=== PATIENT | female | born 1960 | race Caucasian/White ===

== ENCOUNTER 2021-01-31 17:32 | Emergency (ER) | payer BC ==
[2021-01-31 17:53] LABS: Glucose,Whole Blood 328 mg/dL (75-99)
[2021-01-31] MEDS ORDERED: SODIUM CHLORIDE 0.9% 1,000 ML IV STA (18:36)
[2021-01-31] MEDS ORDERED: FAMOTIDINE 20 MG/2 ML VIAL IV STA (18:37)
[2021-01-31] MEDS ORDERED: diphenhydrAMINE 50 MG/ML 1 ML VIAL IVP STA (18:37)
[2021-01-31] MEDS ORDERED: ONDANSETRON 4 MG/2 ML VIAL IVP STA (18:37)
[2021-01-31 18:56] LABS: Basophils # (A) 0.1 k/uL (0-0.2); Basophils % (A) 0 %; Eosinophils # (A) 0.1 k/uL (0-0.7); Eosinophils % (A) 0 %; HCT 40.9 % (34.0-46.0); HGB 13.2 gm/dL (11.4-16.0); Lymphocytes # (A) 1.8 k/uL (1.0-4.8); Lymphocytes % (A) 8 %; MCH 27.8 pg (25.0-35.0); MCHC 32.2 g/dL (31.0-37.0); MCV 86.5 fL (80.0-100.0); Mean Platelet Volume 8.5; Monocytes # (A) 1.1 k/uL (0-1.0); Monocytes % (A) 5 %; Neutrophils # (A) 19.6 k/uL (1.3-7.7); Neutrophils % (A) 85 %; Platelet Count 329 k/uL (150-450); RBC 4.73 m/uL (3.80-5.40); RDW 14.8 % (11.5-15.5); WBC 22.9 k/uL (3.8-10.6)
[2021-01-31 19:00] LABS: ALT 16 U/L (4-34); AST 38 U/L (14-36); African American GFR (CKD) 31 (>60 ml/min/1.73 sqM); Albumin 3.9 g/dL (3.5-5.0); Alkaline Phosphatase 109 U/L (38-126); Anion Gap 16 mmol/L; Blood Urea Nitrogen 51 mg/dL (7-17); Calcium 8.6 mg/dL (8.4-10.2); Carbon Dioxide 18 mmol/L (22-30); Chloride 92 mmol/L (98-107); Glucose 310 mg/dL (74-99); Lipase 354 U/L (23-300); Magnesium 1.5 mg/dL (1.6-2.3); Non-African American GFR(CKD) 27 (>60 ml/min/1.73 sqM); Sodium 126 mmol/L (137-145); Total Bilirubin 1.2 mg/dL (0.2-1.3)
[2021-01-31 19:31] LABS: Partial Thromboplastin Time 23.5 sec (22.0-30.0); Prothrombin Time 10.4 sec (9.0-12.0)
[2021-01-31 19:35] LABS: D-Dimer 9.21 mg/L FEU (<0.60)
[2021-01-31] MEDS ORDERED: MAGNESIUM SULFATE-D5W PMX 1 GM in DEXTROSE/WATER 1 100ML.BAG IVPB ONE (19:40)
[2021-01-31] MEDS ORDERED: SODIUM CHLORIDE 0.9% 1,000 ML IV ONE (19:43)
--- NOTE | 2021-01-31 20:45 | XR ---
EXAMINATION TYPE: XR chest 1V portable, CT chest angio for PE DATE OF EXAM: 01/31/2021 COMPARISON: NONE HISTORY: Chest pain, positive d-dimer. Clinical concern for pulmonary embolism. Chest radiograph technique: Single AP upright portable chest radiograph. CT thorax technique: CT scan of the chest performed for pulmonary embolism after intravenous injectio n of 65 mL of Isovue 300. CT DLP: 475.9 mGycm Automated exposure control for dose reduction was used. FINDINGS: Chest radiograph: Linear opacities are demonstrated in the left lower lobe. Trace left pleural effusion. Cardiomediasti nal silhouette within normal limit. No evidence of pneumothorax. CT thorax for pulmonary embolism: Pulmonary trunk opacification is adequate for evaluation. Opacification of subsegmental pulmonary art eries is suboptimal due to bolus timing. No filling defects are seen in the main, left, right lower lobar pulmonary arteries. Suboptimal evalu ation of the segmental and subsegmental pulmonary arteries therefore a small nonocclusive pulmonary e mbolism cannot be entirely excluded. Pulmonary trunk trunk diameter approximately 2.7 cm. Intrathoracic aorta is nonaneurysmal. Linear with slight minimal nodular and patchy opacities are seen in the left upper and lower lobes. T race left pleural effusion is noted. No pulmonary mass identified. No definite significant pulmonary nodule. Patent trachea and bronchial tree. No mediastinal or hilar lymphadenopathy. The included body and tail of the pancreas is heterogeneous and abnormal enhancement and there is mila rounding fat stranding and peripancreatic fluid in the left upper quadrant and left side of the splen ic/paracolic gutter. The fluid in the left upper quadrant is also closely associated with the greater curvature of the sto mach and there is mild thickening to the gastric wall. IMPRESSION: 1. NO EVIDENCE OF A MAJOR PULMONARY ARTERIAL EMBOLISM WITH LIMITATION IN EVALUATION IN THE SEGMENTAL AND SUBSEGMENTAL PULMONARY ARTERIES. 2. TRACE LEFT PLEURAL EFFUSION PATCHY AND SLIGHTLY NODULAR WITH LINEAR OPACITIES IN THE LEFT UPPER AN D LOWER LOBE COULD BE ON THE BASIS OF ATELECTASIS AND LIKELY REACTIVE, CORRELATION FOR PNEUMONIA GERMAN MMENDED ON CLINICAL BASIS. 3. HETEROGENEOUS APPEARANCE TO THE PANCREATIC BODY AND TAIL WITH SURROUNDING STRANDING AND FLUID SUSP ICIOUS FOR ACUTE NECROTIZING PANCREATITIS, PANCREATIC NEOPLASM CANNOT BE ENTIRELY EXCLUDED. 4. FLUID IN THE LEFT UPPER QUADRANT CLOSELY ASSOCIATED WITH THE GREATER CURVATURE OF THE STOMACH, THI S FLUID MAY BE REACTIVE SECONDARY TO PANCREATITIS HOWEVER IT IS DIFFICULT TO EXCLUDE A GASTRIC WALL P ATHOLOGY. 5. CHEST RADIOGRAPH REFLECTS FINDINGS DESCRIBED ABOVE. DR. BRASHER CALLED DR. BRENDON CUBA WITH ABOVE FINDINGS AND IMPRESSION. COMMUNICATION ACKNOWLEDGED BY PROVIDER.
[2021-01-31] MEDS ORDERED: MEROPENEM 2 GM in SODIUM CHLORIDE 0.9% 100 ML IVPB STA (21:03)
--- NOTE | 2021-01-31 21:35 | ED ---
General Adult HPI - General Chief complaint: Recheck/Abnormal Lab/Rx Stated complaint: hyperglycemia Time Seen by Provider: 01/31/21 17:54 Source: patient Mode of arrival: ambulatory Limitations: no limitations - History of Present Illness Initial comments: Patient is a 61-year-old female with past medical history remarkable for hypertension, wie-oxqmtsx-mixnnykly diabetes, obesity presents emergency Department complaining of a 4-5 day history of worsening epigastric abdominal pain, nausea, vomiting. She denies any diarrhea or change in bowel habits. States she has been having minimal by mouth intake over the last few days secondary to her nausea and vomiting. She describes her vomiting is nonbilious and nonbloody. She denies any chest pain but does endorse difficulty in breathing. She endorses exertional dyspnea but denies any worsening orthopnea, paroxysmal nocturnal dyspnea, or sooner extremity swelling. Patient does have a history of superficial blood clots in her bilateral lower extremities and no DVTs or pulmonary embolism. She has never been on blood thinners previously. She denies any fevers, cough, headache, blurry vision. She states she feels dehydrated and has generalized fatigue. She is concerned abdominal pain as sharp located in the epigastric region. It does not radiate. She denies any palliative or exacerbating factors. She denies any history of cardiac disease. Patient otherwise has no acute complaints at this time. She denies any polyuria or dysuria. She denies being . - Related Data Home Medications Medication Instructions Recorded Confirmed metFORMIN HCL [Glucophage] 1,000 mg PO DAILY 10/22/17 01/31/21 lisinopriL [Zestril] 20 mg PO DAILY 01/31/21 01/31/21 Allergies Allergy/AdvReac Type Severity Reaction Status Date / Time No Known Allergies Allergy Verified 01/31/21 18:21 Review of Systems ROS Statement: Those systems with pertinent positive or pertinent negative responses have been documented in the HPI. Review of Systems: CONST: Denies fever EYES: Denies blurry vision ENT: Denies nasal congestion C/V: Denies Chest pain RESP: Endorses shortness of breath GI: Endorses abdominal pain : Denies dysuria SKIN: Denies rash. MSK: Denies joint pain. NEURO: Denies headache ROS Other: All systems not noted in ROS Statement are negative. Past Medical History Past Medical History: Diabetes Mellitus, Hypertension History of Any Multi-Drug Resistant Organisms: None Reported Past Surgical History: Cholecystectomy Additional Past Surgical History / Comment(s): Left forearm, laproscopic rreproductive organs Past Anesthesia/Blood Transfusion Reactions: No Reported Reaction Past Psychological History: No Psychological Hx Reported Smoking Status: Current every day smoker Past Alcohol Use History: None Reported Past Drug Use History: None Reported General Exam - General Exam Comments Initial Comments: General: Appears in mild distress secondary to abdominal discomfort. HEAD: Normal with no signs of head trauma. EYES: PERRLA, EOMI, conjunctiva normal, no discharge. ENT: Hearing is grossly intact, dry mucous membranes. RESPIRATORY: Clear breath sounds bilaterally. No wheezes, rales, or rhonchi. C/V: Patient is tachycardic with a regular rhythm. S1 and S2 auscultated. Peripheral pulses are 2+ and intact throughout. Nonpitting edema in the bilateral lower extremities. ABD: Abdomen is soft, nondistended. Patient is tender to palpation in the epigastric region with no radiation. There is no guarding. There are no peritoneal signs. Linton sign is negative. McBurney's point is negative. EXT: Normal range of motion, no obvious deformity SKIN: No rashes or lesions observed on exposed skin. NEURO: Alert and Oriented 4. No focal sensory or strength deficits. Limitations: no limitations Course Vital Signs 01/31/21 01/31/21 01/31/21 17:38 19:00 20:28 Temperature 97.8 F Pulse Rate 122 H 107 H 101 H Respiratory 18 18 18 Rate Blood Pressure 101/67 109/61 143/68 O2 Sat by Pulse 98 99 95 Oximetry Medical Decision Making - Medical Decision Making Based the patient's presentation and physical exam, I'm concerned for possible cardiac etiology for her current symptoms versus possible pulmonary embolism as well as intra-abdominal process. Her abdominal laboratory studies will be obtained. We will also evaluate from a joints and possible DKA with a history of diabetes and hyperglycemia. Patient does not perk out in Wells score is moderate at 4.5 with subjective dyspnea associated with tachycardia and history of superficial blood clots. Therefore cardiac labs as well as a d-dimer which will be obtained. Urinalysis was obtained. She was in agreement with this plan. She'll be given a 1 L fluid bolus as well as IV Zofran, famotidine, Benadryl symptomatically. She was in agreement with this plan. Patient's laboratory studies are remarkable for a hyponatremia of 126 and hypochloremia of 92. Patient's bicarb is decreased to 18 which is likely secondary to her episodes nonbilious emesis. Patient has an AK I with an elevated BUN/creatinine 51 and 1.97, likely prerenal. Patient is mildly hyperglycemic at 310. Patient is hypomagnesemic and 1.5 which was replenished. Patient's troponin is negative. Patient's lipase is elevated 354. D-dimer is also elevated to 9.21. Patient has a leukocytosis of 22.9. Based on the patient's laboratory studies, I'm concerned for possible infectious process as well as a pulmonary embolism. She also appears dehydrated. She was given an additional liter fluid bolus. We will obtain a CT PE and scan the upper part of the abdomen to evaluate the pancreas due to the elevated lipase and concern for possible pancreatitis. Patient was in agreement with this plan. She states on reevaluation that her pain and nausea well controlled at this time. Heart rate is also improved to the low 100s. Patient's CT PE did not reveal any signs of pulmonary embolism but it did reveal signs suggestive of acute necrotizing pancreatitis. I discussed this with the patient and also spoke with her surgery attending databases software consultant Dr. Rashid who recommended that we transfer the patient to a higher level of care. I spoke with multiple hospitals and finally [facility] agreed to accept the patient. Dr. Cross is the accepting physician. Patient was started on meropenem prior to transfer. She started on maintenance fluids as well. Patient was therefore transferred in serious condition to [facility]. She was made NPO. - Lab Data Result diagrams: 01/31/21 18:42 01/31/21 18:42 Lab Results 01/31/21 01/31/21 01/31/21 Range/Units 17:52 18:42 18:42 WBC 22.9 H (3.8-10.6) k/uL RBC 4.73 (3.80-5.40) m/uL Hgb 13.2 (11.4-16.0) gm/dL Hct 40.9 (34.0-46.0) % MCV 86.5 (80.0-100.0) fL MCH 27.8 (25.0-35.0) pg MCHC 32.2 (31.0-37.0) g/dL RDW 14.8 (11.5-15.5) % Plt Count 329 (150-450) k/uL MPV 8.5 Neutrophils % 85 % Lymphocytes % 8 % Monocytes % 5 % Eosinophils % 0 % Basophils % 0 % Neutrophils # 19.6 H (1.3-7.7) k/uL Lymphocytes # 1.8 (1.0-4.8) k/uL Monocytes # 1.1 H (0-1.0) k/uL Eosinophils # 0.1 (0-0.7) k/uL Basophils # 0.1 (0-0.2) k/uL PT 10.4 (9.0-12.0) sec INR 1.0 (<1.2) APTT 23.5 (22.0-30.0) sec D-Dimer 9.21 H (<0.60) mg/L FEU Sodium (137-145) mmol/L Potassium (3.5-5.1) mmol/L Chloride (98-107) mmol/L Carbon Dioxide (22-30) mmol/L Anion Gap mmol/L BUN (7-17) mg/dL Creatinine (0.52-1.04) mg/dL Est GFR (CKD-EPI)AfAm (>60 ml/min/1.73 sqM) Est GFR (CKD-EPI)NonAf (>60 ml/min/1.73 sqM) Glucose (74-99) mg/dL POC Glucose (mg/dL) 328 H (75-99) mg/dL POC Glu Rating Specialist ID [place], Estella Plasma Lactic Acid [place] (0.7-2.0) mmol/L Calcium (8.4-10.2) mg/dL Magnesium (1.6-2.3) mg/dL Total Bilirubin (0.2-1.3) mg/dL AST (14-36) U/L ALT (4-34) U/L Alkaline Phosphatase (38-126) U/L Troponin I (0.000-0.034) ng/mL Total Protein (6.3-8.2) g/dL Albumin (3.5-5.0) g/dL Lipase (23-300) U/L Acetone, Qual (Negative) Coronavirus (PCR) (Not Detectd) 01/31/21 01/31/21 01/31/21 Range/Units 18:42 18:42 18:42 WBC (3.8-10.6) k/uL RBC (3.80-5.40) m/uL Hgb (11.4-16.0) gm/dL Hct (34.0-46.0) % MCV (80.0-100.0) fL MCH (25.0-35.0) pg MCHC (31.0-37.0) g/dL RDW (11.5-15.5) % Plt Count (150-450) k/uL MPV Neutrophils % % Lymphocytes % % Monocytes % % Eosinophils % % Basophils % % Neutrophils # (1.3-7.7) k/uL Lymphocytes # (1.0-4.8) k/uL Monocytes # (0-1.0) k/uL Eosinophils # (0-0.7) k/uL Basophils # (0-0.2) k/uL PT (9.0-12.0) sec INR (<1.2) APTT (22.0-30.0) sec D-Dimer (<0.60) mg/L FEU Sodium 126 L (137-145) mmol/L Potassium 5.0 (3.5-5.1) mmol/L Chloride 92 L (98-107) mmol/L Carbon Dioxide 18 L (22-30) mmol/L Anion Gap 16 mmol/L BUN 51 H (7-17) mg/dL Creatinine 1.97 H (0.52-1.04) mg/dL Est GFR (CKD-EPI)AfAm 31 (>60 ml/min/1.73 sqM) Est GFR (CKD-EPI)NonAf 27 (>60 ml/min/1.73 sqM) Glucose 310 H (74-99) mg/dL POC Glucose (mg/dL) (75-99) mg/dL POC Glu Rating Specialist ID Plasma Lactic Acid [place] (0.7-2.0) mmol/L Calcium 8.6 (8.4-10.2) mg/dL Magnesium 1.5 L (1.6-2.3) mg/dL Total Bilirubin 1.2 (0.2-1.3) mg/dL AST 38 H (14-36) U/L ALT 16 (4-34) U/L Alkaline Phosphatase 109 (38-126) U/L Troponin I <0.012 (0.000-0.034) ng/mL Total Protein 7.0 (6.3-8.2) g/dL Albumin 3.9 (3.5-5.0) g/dL Lipase 354 H (23-300) U/L Acetone, Qual Positive (Negative) Coronavirus (PCR) Not Detected (Not Detectd) 01/31/21 Range/Units 21:19 WBC (3.8-10.6) k/uL RBC (3.80-5.40) m/uL Hgb (11.4-16.0) gm/dL Hct (34.0-46.0) % MCV (80.0-100.0) fL MCH (25.0-35.0) pg MCHC (31.0-37.0) g/dL RDW (11.5-15.5) % Plt Count (150-450) k/uL MPV Neutrophils % % Lymphocytes % % Monocytes % % Eosinophils % % Basophils % % Neutrophils # (1.3-7.7) k/uL Lymphocytes # (1.0-4.8) k/uL Monocytes # (0-1.0) k/uL Eosinophils # (0-0.7) k/uL Basophils # (0-0.2) k/uL PT (9.0-12.0) sec INR (<1.2) APTT (22.0-30.0) sec D-Dimer (<0.60) mg/L FEU Sodium (137-145) mmol/L Potassium (3.5-5.1) mmol/L Chloride (98-107) mmol/L Carbon Dioxide (22-30) mmol/L Anion Gap mmol/L BUN (7-17) mg/dL Creatinine (0.52-1.04) mg/dL Est GFR (CKD-EPI)AfAm (>60 ml/min/1.73 sqM) Est GFR (CKD-EPI)NonAf (>60 ml/min/1.73 sqM) Glucose (74-99) mg/dL POC Glucose (mg/dL) (75-99) mg/dL POC Glu Rating Specialist ID Plasma Lactic Acid [place] 1.0 (0.7-2.0) mmol/L Calcium (8.4-10.2) mg/dL Magnesium (1.6-2.3) mg/dL Total Bilirubin (0.2-1.3) mg/dL AST (14-36) U/L ALT (4-34) U/L Alkaline Phosphatase (38-126) U/L Troponin I (0.000-0.034) ng/mL Total Protein (6.3-8.2) g/dL Albumin (3.5-5.0) g/dL Lipase (23-300) U/L Acetone, Qual (Negative) Coronavirus (PCR) (Not Detectd) - EKG Data -: EKG Interpreted by Me EKG Comments: 12-lead Electrocardiogram Interpretation Note EKG was reviewed and interpreted by myself. 12-lead ECG performed at 1809 is interpreted by me as revealing sinus tachycardia at a rate of 115 beats per minute. Fox is normal. NC interval is 124 ms, QRS duration is 116 ms, QTc is 495 ms.. There were no ST or T wave abnormalities to suggest myocardial ischemia or injury. Patient does appear to have a right bundle-branch block. No prior EKGs are available for comparison.. By my interpretation this EKG is non-diagnostic for acute ischemia. Disposition Clinical Impression: Necrotizing pancreatitis, THERESA (acute kidney injury), Dyspnea, Elevated d-dimer, Sinus tachycardia, Dehydration, Diabetes, Hypomagnesemia Narrative: Transferred to [facility] Disposition: OTHER INSTITUTION NOT DEFINED Condition: Serious Referrals: Shey Dyer MD [Primary Care Provider] - 1-2 days - Out of Hospital Transfer - Req. Specs Out of Hospital Transfer - Requested Specifics: Other Non-Acute (Surgerical services for necrotizing pancreatitis)
[2021-01-31] MEDS ORDERED: SODIUM CHLORIDE 0.9% 1,000 ML IV SCH (22:45)
[2021-01-31 22:48] VITALS: TEMP 96.9
[2021-01-31 23:10] VITALS: BP 129/75; PULSE 92; RESP 20
== END 2021-01-31 23:19 | disposition other institution (70) ==
LOC: EC 17:32
DX: K85.91 Acute pancreatitis with uninfected necrosis, unspecified (principal); E83.42 Hypomagnesemia; E86.0 Dehydration; E66.9 Obesity, unspecified; R00.0 Tachycardia, unspecified; R06.00 Dyspnea, unspecified; E11.65 Type 2 diabetes mellitus with hyperglycemia; R79.1 Abnormal coagulation profile; F17.200 Nicotine dependence, unspecified, uncomplicated; I10 Essential (primary) hypertension; N17.9 Acute kidney failure, unspecified; Z79.84 Long term (current) use of oral hypoglycemic drugs; Z68.37 Body mass index [BMI] 37.0-37.9, adult
CPT/HCPCS: 36415; 93005; 85379; 80053; 82009; 83605; 83690; 83735; 84484; 85025; 85610; 85730; 87040; 87635; 71045; 71275; 99285; 96375 ×4; 96365; 96361 ×2; J1200; J2405; J2185; J3475; Q9967

== ENCOUNTER 2024-09-21 11:33 | Day surgery (SDC) | payer MEDICARE ==
[~2024-09-21 11:33] MED LIST: HYDROmorphone 0.5 MG/0.5 ML SYRINGE IVP PRN; MIDAZOLAM 2 MG/2 ML VIAL IV PRN; Pre Op ABX Message 1 EACH MISC MISCELLANE ONE; fentaNYL (PF) 50 MCG/ML 2 ML AMP IVP PRN
[2024-09-21] MEDS: IV FLUID CONTINUATION 1,000 ML IV ONE (12:25)
[2024-09-21] MEDS: LIDOCAINE 1% (10MG/ML) FOR IV START INTRADERMA PRN (12:25)
[2024-09-21] MEDS: LACTATED RINGERS 1,000 ML IV SCH (12:25)
[2024-09-21] MEDS: ONDANSETRON 4 MG/2 ML VIAL IVP ONE (12:33)
[2024-09-21] MEDS: LIDOCAINE 1% INJ 10MG/ML (20 ML MDV) SQ ONE ×2 (12:33→14:40)
[2024-09-21] MEDS: DEXAMETHASONE SOD PHOSPHATE 4 MG/ML 1 ML VIAL IV ONE (12:34)
[2024-09-21 12:42] LABS: Glucose,Whole Blood 94 mg/dL (70-110)
[2024-09-21] MEDS ORDERED: LIDOCAINE 1% INJ 10MG/ML (20 ML MDV) ONE (14:20)
[2024-09-21] MEDS ORDERED: PROPOFOL 10 MG/ML 20 ML VIAL IV ONE (14:20)
[2024-09-21] MEDS ORDERED: MIDAZOLAM 2 MG/2 ML VIAL ONE (14:20)
[2024-09-21] MEDS ORDERED: fentaNYL (PF) 50 MCG/ML 2 ML AMP ONE (14:20)
[2024-09-21] MEDS: LACTATED RINGERS 1,000 ML IV ONE ×2 (14:54→15:01)
[2024-09-21 15:11] VITALS: TEMP 97
[2024-09-21 15:15] LABS: Glucose,Whole Blood 107 mg/dL (70-110)
--- NOTE | 2024-09-21 15:30 | FL ---
EXAMINATION TYPE: FL guided central line placement Intraoperative/procedural fluoroscopic services we re provided. CLINICAL INDICATION:Female, 64 years old with history of Port-A-Cath Insertion; , [facility] FINDINGS: Right chest wall subclavian approach Port-A-Cath insertion with distal tip in the region of the right atrium. No radiographic evidence for complication. Total fluoroscopy time is 9.8 seconds. DAP: [id number] [id number] Please see the operative/procedural note for further details. [facility], , 09/21/2024 3:27 PM
--- NOTE | 2024-09-21 15:51 | XR ---
EXAMINATION TYPE: XR chest 1V DATE OF EXAM: 09/21/2024 3:45 PM COMPARISON: Chest radiographs from 01/31/2021, fluoroscopic images 09/21/2024, CTA chest 01/31/2021 TECHNIQUE: XR chest 1V Frontal view of the chest. CLINICAL INDICATION:Female, 64 years old with history of PTX after mediport; FINDINGS: Lungs/Pleura: There is no evidence of pleural effusion, focal consolidation, or pneumothorax. Chroni c interstitial prominence. Pulmonary vascularity: Unremarkable. Heart/mediastinum: Cardiomediastinal silhouette is enlarged and stable. Musculoskeletal: No acute osseous pathology. Other findings: None Lines/Tubes: Subclavian approach Mediport projecting over the right hemithorax with distal tip at the superior cav oatrial junction. IMPRESSION: Right hemithorax Mediport catheter with distal tip at the superior cavoatrial junction. No pneumothor ax. [facility], , 09/21/2024 3:49 PM
[2024-09-21 16:16] VITALS: BP 132/63; PULSE 76; RESP 17
--- NOTE | 2024-09-21 17:44 | P.OP ---
Date of Procedure: 09/21/24 Preoperative Diagnosis: Metastatic Rectal Cancer Postoperative Diagnosis: Metastatic Rectal Cancer Procedure(s) Performed: Mediport Insertion Anesthesia: MAC Surgeon: Luis Stovall Estimated Blood Loss (ml): 10 Pathology: none sent Condition: stable Disposition: PACU Description of Procedure: The patient was taken to the operating room, placed supine, put under LMA. The patient's neck, chest, and shoulders were prepped and draped in usual sterile fashion. An incision was made on the right shoulder area. The right subclavian vein was cannulated. The wire was passed, which was in good position under fluoroscopy, using Seldinger Technique. Near wire incision site made a pocket above the fascia and sutured in a single-lumen MediPort into the pocket in 4 places using 3-0 Vicryl suture. I then sized the catheter under fluoro and placed introducer and dilator over the wire, removed the wire and dilator, placed the catheter through the introducer and removed the introducer. The line tip was in good position under fluoro. It withdrew and flushed well. I then closed the incision using 3-0 Vicryl, 4-0 Monocryl for the skin, and skin glue. Accessed the ports with a 1-inch 20-gauge Levy needle, and it withdrew and flushed well with final heparin flush. A postoperative chest-ray was ordered.
== END 2024-09-21 16:35 | disposition home or self-care (01) ==
LOC: OR 11:33
PROVIDERS: ATTEND Surgery
DX: C78.5 Secondary malignant neoplasm of large intestine and rectum (principal); Z45.2 Encounter for adjustment and management of vascular access device
CPT/HCPCS: 77001; 71045; 36561; C1788; J2250; J1100; J0690; J2405; J2003; J3010; J1642; J2704